=== PATIENT | female | born 1960 | race Caucasian/White ===

== ENCOUNTER → 2020-09-11 09:29 | Outpatient (CLI) | payer OTHER, SELFPAY ==
--- NOTE | 2020-09-11 | DI.MRI.S_ITS ---
PROCEDURE: MR KNEE LT WO CON INDICATIONS: Unspecified superficial injury of left knee TECHNIQUE: Noncontrast sagittal PD fast spin echo and T2 fast spin echo with fat saturation, sagittal 3-D FLASH with fat saturation; coronal T1 spin echo and PD fast spin echo with fat saturation, and axial PD fast spin echo with fat saturation through the knee. COMPARISON: None. FINDINGS: Image quality: Excellent. Menisci: Linear oblique high T2 signal intensity traverses the posterior horn medial meniscus, demonstrating inferior articular surface extension. There is linear and amorphous high signal intensity within the lateral meniscal body and posterior horn, demonstrating superior and inferior articular surface extension, indicating complex tearing. Cruciate ligaments: The anterior and posterior cruciate ligaments appear intact. Medial structures: The medial collateral ligament appears intact. Visualized portions of the pes anserinus tendons appear normal. No abnormal bursal fluid. Lateral structures: The lateral collateral ligament demonstrates moderate T2 signal elevation at the femoral origin. The long and short heads of the biceps femoris tendon appear intact. The popliteus tendon appears normal. Iliotibial band appears normal. Anterior structures: The quadriceps and patellar tendons appear intact. Patellar alignment is normal. No femoral trochlear dysplasia or ventral trochlear prominence. Moderate edema in the superolateral aspect of the infrapatellar fat pad. Bones and cartilage: No bone marrow contusions or fractures. Mild articular cartilage loss diffusely overlies the weight-bearing aspects of the lateral femoral condyle and lateral tibial plateau with superimposed high-grade articular cartilage loss overlying the posterior weight-bearing aspect of the lateral femoral condyle. Severe articular cartilage loss diffusely overlies the weight-bearing aspects of the medial femoral condyle and medial tibial plateau. There is a focal moderate to high-grade region of articular cartilage loss overlying the patellar apex measuring 10 mm diameter. Joint space: There is a moderate knee joint effusion. No Coles's cyst. Normal appearing synovial plicae are incidentally noted. IMPRESSION: 1. Tricompartmental osteoarthritis with associated articular cartilage loss. 2. Medial and lateral meniscal tearing. 3. Knee joint effusion. 4. Partial thickness lateral collateral ligament tear. Dictated by: Merry Romo M.D. on 09/11/2020 at 10:45 Approved by: Merry Romo M.D. on 09/11/2020 at 10:47
== END ==
PROVIDERS: PCP Family Medicine; Referring Provider Family Medicine; Visit Provider Family Medicine
DX: S80.912A Unspecified superficial injury of left knee, initial encounter (principal); M17.12 Unilateral primary osteoarthritis, left knee; S83.242A Other tear of medial meniscus, current injury, left knee, initial encounter; S83.272A Complex tear of lateral meniscus, current injury, left knee, initial encounter; M25.462 Effusion, left knee; S83.422A Sprain of lateral collateral ligament of left knee, initial encounter
CPT/HCPCS: 73721

== ENCOUNTER → 2021-01-14 16:14 | Outpatient (CLI) | payer OTHER, SELFPAY | PROVIDERS: PCP Family Medicine; Referring Provider Family Medicine; Visit Provider Family Medicine | DX: Z12.31 Encounter for screening mammogram for malignant neoplasm of breast (principal); Z53.20 Procedure and treatment not carried out because of patient's decision for unspecified reasons ==

== ENCOUNTER → 2021-03-12 16:31 | Outpatient (CLI) | payer OTHER, SELFPAY ==
--- NOTE | 2021-03-12 | DI.MG.S_ITS ---
BILATERAL DIGITAL SCREENING MAMMOGRAM 3D/2D WITH CAD: 03/12/2021 CLINICAL: Routine screening. Comparison is made to exams dated: 02/18/2020 mammogram - [facility], 05/02/2018 mammogram, and 04/12/2017 mammogram - [facility]. There are scattered fibroglandular elements in both breasts. Current study was also evaluated with a Computer Aided Detection (CAD) system. No significant masses, calcifications, or other findings are seen in either breast. There has been no significant interval change. IMPRESSION: NEGATIVE There is no mammographic evidence of malignancy. A 1 year screening mammogram is recommended. This exam was interpreted at Station ID: [id number]. NOTE: For mammograms, a report in lay terms will be sent to the patient. Approximately 15% of breast malignancies will not be visualized mammographically. In the management of a palpable breast mass, a negative mammogram must not discourage biopsy of a clinically suspicious lesion. Electronically Signed By: Eder Flannery M.D., jr/jone:03/15/2021 08:34:54 letter sent: Normal Exam ACR BI-RADS Category 1: Negative 3341F
== END ==
PROVIDERS: PCP Family Medicine; Referring Provider Family Medicine; Visit Provider Family Medicine
DX: Z12.31 Encounter for screening mammogram for malignant neoplasm of breast (principal)
CPT/HCPCS: 77063; 77067

== ENCOUNTER → 2021-04-05 17:20 | Outpatient (CLI) | payer OTHER, SELFPAY ==
--- NOTE | 2021-04-05 | DI.MRI.S_ITS ---
PROCEDURE: MR KNEE RT WO CON INDICATIONS: PAIN IN KNEE,EFFUSION OF RIGHT KNEE TECHNIQUE: Noncontrast sagittal PD fast spin echo and T2 fast spin echo with fat saturation, sagittal 3-D FLASH with fat saturation; coronal T1 spin echo and PD fast spin echo with fat saturation, and axial PD fast spin echo with fat saturation through the knee. COMPARISON: [facility], MR, MR KNEE LT WO CON, 09/11/2020, 10:07. FINDINGS: Image quality: Excellent. Menisci: Medial meniscus is intact. Subtle signal abnormality within posterior horn of lateral meniscus extending to inferior articulating surface is seen concerning for subtle oblique tear. The meniscal root ligaments appear intact. Cruciate ligaments: Myxoid degenerative changes and low to moderate grade intrasubstance partial-thickness tear involving anterior cruciate ligament is noted. No full-thickness ACL rupture. PCL is intact.. Medial structures: The medial collateral ligament appears intact. The posterior oblique ligament, semimembranosus tendon insertions, oblique popliteal ligament, and meniscocapsular junction appear intact. Visualized portions of the pes anserinus tendons appear normal. No abnormal bursal fluid. Lateral structures: The lateral collateral ligament, long and short heads of the biceps femoris tendon appear intact. The popliteus tendon appears normal; the popliteofibular ligament appears intact. The posterosuperior and anteroinferior popliteomeniscal fascicles appear intact. The arcuate and fabellofibular ligaments appear intact, on either side of the lateral inferior geniculate artery. Iliotibial band appears normal. Anterior structures: The quadriceps and patellar tendons appear intact. Patellar alignment is normal. No femoral trochlear dysplasia or ventral trochlear prominence. No edema in the infrapatellar fat pad. Bones and cartilage: No bone marrow contusions or fractures. [id number] tricompartmental osteoarthritis and chondromalacia is seen more prominent in lateral femoral tibial compartment and lateral facet of patella cartilage near apex. Joint space: There is small amount of joint fluid. Tiny popliteal cyst is seen. Normal appearing synovial plicae are incidentally noted. IMPRESSION: 1. Finding is concerning for subtle oblique tear involving posterior horn of lateral meniscus extending to inferior articulating surface. Medial meniscus is intact. 2. Degenerative changes and low to moderate grade intrasubstance partial-thickness tear involving anterior cruciate ligament. No full-thickness ACL rupture. PCL is intact. 3. Cdvz-[id number]-[id number] tricompartmental osteoarthritis and chondromalacia. No fracture or dislocation. 4. Small amount of joint fluid, a tiny popliteal cyst. No gross loose bodies. Dictated by: Juan Penn M.D. on 04/06/2021 at 8:51 Approved by: Juan Penn M.D. on 04/06/2021 at 9:06
== END ==
PROVIDERS: PCP Family Medicine; Referring Provider Family Medicine; Visit Provider Family Medicine
DX: S83.281A Other tear of lateral meniscus, current injury, right knee, initial encounter (principal); S83.511A Sprain of anterior cruciate ligament of right knee, initial encounter; M17.11 Unilateral primary osteoarthritis, right knee; M94.261 Chondromalacia, right knee; M25.561 Pain in right knee; M25.461 Effusion, right knee
CPT/HCPCS: 73721

== ENCOUNTER 2021-04-27 12:12 | Day surgery (SDC) | payer OTHER, SELFPAY ==
[2021-04-27] VITALS (8 sets, daily range): BP systolic 94–151; BP diastolic 55–99; PULSE 93–106; RESP 15–22; TEMP 36.2–37.3; O2SAT 95–98; BMI 33.3
[2021-04-27 12:58] LABS: COVID19 -Nasal RAPID Negative (Negative)
[2021-04-27] MEDS: LACTATED RINGERS 1,000 ML 42 ML IV (13:16)
[2021-04-27] MEDS: CLINDAMYCIN 900 MG/50 ML PIGGYBACK 50 MG IV (15:05)
--- NOTE | 2021-04-27 15:27 | SUR.OPER ---
Lithotomy on padded OR bed, head on pillow, arms secured on padded arm boards at <90 degrees abduction. right leg secured in padded yellow fins stirrups, right leg secured in padded arthroscopy knee calvillo
[2021-04-27] MEDS: BUPIVACAINE 0.5% (PF) 30 ML, EPINEPHrine 0.15 MG INJ (15:38)
--- NOTE | 2021-04-27 16:00 | P.OP_ITS ---
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 She has recurrent effusions. Her scan showed evidence of a meniscal tear and she is brought the operating room for left knee arthroscopy with repair is indicated. Surgeon: Mickie Post Wireless Technician: Rosalinda Lugo Anesthesia Type: Spinal Operative Notes Findings: Complex tear of the posterior horn of the medial meniscus with an unstable flap, areas of grade 2-3 chondromalacia in the medial femoral condyle and tibial plateau, normal ACL, degenerative tear in the lateral meniscus which extended from the anterior 3rd and posterior horn, fairly normal arch to killer cartilage on the lateral femoral condyle some grade 2 chondromalacia along the lateral tibial plateau, grade 2-3 chondromalacia trochlear groove and patella Closure Type: primary Specimen(s): none sent Estimated Blood Loss (mL): 10 Blood products transfused: none Procedure in detail: Patient brought the operating room she underwent induction of spinal anesthetic. Her left lower extremity prepped draped standard sterile fashion. IV antibiotics were given. A time-out was performed. She was prepped and draped sterilely. A left knee arthroscopy was performed 3 portal arthroscopy with a lateral parapatellar portal and medial and lateral inferior parapatellar portals . She had a tear both in the lateral meniscus and in the medial meniscus. Mechanical shaver was used to resect the meniscus back to stable meniscal rim. Both menisci were carefully checked probed. There was no residual unstable fragment. The knee was meticulously irrigated with normal saline. There was evidence of chondromalacia both in the medial and lateral compartment but there was no large unstable than chondromalacia flaps. Knee was meticulously irrigated with normal saline. The portals were closed with interrupted nylon. Steri-Strips were applied. Patient tolerated the procedure well she was transferred to recovery room in satisfactory condition. Wound was dressed sterilely. Complications: none Post-operative Condition: stable Disposition: Acute Care Plan for aftercare: Weight-bearing as tolerated on the left lower extremity. Ice as needed. Okay to begin immediate range of motion and strengthening. Her suture removal at 10- 14 days postoperatively.
== END 2021-04-27 17:30 | disposition home or self-care (01) ==
PROVIDERS: PCP Family Medicine; Referring Provider Orthopaedic Surgery; Visit Provider Orthopaedic Surgery
PROC: (CPT 29870; principal; 2021-04-27 14:00)
DX: S83.222A Peripheral tear of medial meniscus, current injury, left knee, initial encounter (principal); Z20.822 Contact with and (suspected) exposure to COVID-19
CPT/HCPCS: 29881; 87635; C9803; J0171; J1100; J1885; J2250; J2405; J2704; J3010

== ENCOUNTER → 2021-08-24 07:07 | Outpatient (CLI) | payer OTHER, SELFPAY ==
[2021-08-24 11:53] LABS: COVID19 -Nasal RAPID Negative (Negative)
== END ==
PROVIDERS: PCP Family Medicine; Visit Provider Surgery
DX: Z01.812 Encounter for preprocedural laboratory examination (principal); Z20.822 Contact with and (suspected) exposure to COVID-19
CPT/HCPCS: 87635; C9803

== ENCOUNTER 2021-08-25 07:27 | Day surgery (SDC) | payer OTHER, SELFPAY ==
[2021-08-20 08:41] VITALS: BMI 33.3
[2021-08-25 07:53] VITALS: BMI 33.3
[2021-08-25 08:11] VITALS: BP 161/89; PULSE 78; RESP 18; TEMP 35.9; O2SAT 98
[2021-08-25] MEDS: LACTATED RINGERS 1,000 ML 100 ML IV (08:18)
--- NOTE | 2021-08-25 08:32 | P.HP_ITS ---
History of Present Illness History of Present Illness Date Patient Seen: 08/25/21 Time Patient Seen: 08:32 Chief complaint: SDC Narrative: 60-year-old woman with a symptomatic umbilical hernia here for elective repair. Please refer to the H& P from May 2021 for further detail. During the interval she developed mild COVID which has resolved. Today she is feeling well without complaint. Patient History Medical History Anesthesia complication GERD (gastroesophageal reflux disease) Heart murmur Hiatal hernia HTN (hypertension) Insomnia Gee neuroma RLS (restless legs syndrome) SVT (supraventricular tachycardia) (~2017) Uterine polyp Surgical History History of foot surgery History of gynecologic surgery History of laparoscopy Hx of arthroscopy of left knee (05/2021) Hx of tonsillectomy Status post bunionectomy Family & Social History Social History: household members spouse Tobacco & Substance use: Tobacco type cigarettes Smoking Status Current every day smoker Smoking packs per day 1 alcohol intake current alcohol intake frequency 0-2 drinks per day Substance Use Type does not use Meds Home Medications and Allergies Home Medications Medication Instructions Recorded Confirmed Type amitriptyline 50 mg tablet 50 mg PO DAILY ##0 04/27/21 08/25/21 History aspirin 81 mg capsule 81 mg PO DAILY ##0 04/27/21 08/25/21 History cetirizine 10 mg tablet 10 mg PO DAILY ##0 04/27/21 08/25/21 History conj estrogen-medroxyprogesterone 1 tab PO DAILY ##0 04/27/21 08/25/21 History 0.625 mg-5 mg tablet (Prempro) omeprazole 20 mg tablet,delayed 20 mg PO BID ##0 04/27/21 08/25/21 History release pramipexole 0.25 mg tablet 0.25 mg PO DAILY ##0 04/27/21 08/25/21 History tizanidine 2 mg tablet 2 mg PO DAILY ##0 04/27/21 08/25/21 History zolpidem 5 mg tablet 5 mg PO BEDTIME ##0 04/27/21 08/25/21 History magnesium 250 mg tablet 500 mg PO DAILY 05/24/21 08/25/21 History zinc gluconate 50 mg tablet 50 mg PO DAILY 05/24/21 08/25/21 History carvedilol 25 mg tablet 25 mg PO BID 08/20/21 08/25/21 History Allergies Allergy/AdvReac Type Severity Reaction Status Date / Time oxycodone Allergy Severe Nausea Verified 08/25/21 07:45 cefazolin Allergy Hives Verified 08/25/21 07:45 celecoxib [From Celebrex] Allergy Gastrointestinal Verified 08/25/21 07:45 Upset latex Allergy Anaphylaxis Verified 08/25/21 07:45 scopolamine Allergy Blister Verified 08/25/21 07:45 varenicline [From Chantix] Allergy Anaphylaxis Verified 08/25/21 07:45 bupropion [From Wellbutrin] AdvReac GLOBAL SAFETY OFFICER Verified 08/25/21 07:45 disturbance Exam Vital Signs (past 8 hours): - 08/25/21 08:11 Temperature 96.7 F L Pulse Rate 78 Respiratory Rate 18 Blood Pressure 161/89 H Pulse Oximetry 98 Oxygen Delivery Method Room Air Oxygen Delivery Method Room Air Narrative Exam Narrative: General adult woman alert oriented no acute distress Abdomen soft nontender nondistended umbilical hernia soft reducible Assessment & Plan Assessment and plan (1) Umbilical hernia: Qualifiers: Obstruction and gangrene presence: without obstruction or gangrene Qualified Code(s): K42.9 - Umbilical hernia without obstruction or gangrene Status: Acute Assessment & Plan narrative: 60-year-old woman with a symptomatic umbilical hernia here for elective open umbilical hernia repair likely with mesh. Overview of the operation was again discussed with the patient at the bedside. Operative risks including bleeding, infection, recurrence, damage to surrounding structures were discussed. Her questions have been answered and she is in agreement with this plan. Time Spent With Patient Critical Care time: I spent a total of [] minutes of critical care time on this patient's care today; this time is exclusive of procedural time.
[2021-08-25] MEDS: APREPITANT 40 MG CAPSULE PO (08:45)
[2021-08-25] MEDS: CLINDAMYCIN 900 MG/50 ML PIGGYBACK 50 MG IV (09:06)
--- NOTE | 2021-08-25 09:14 | SUR.OPER ---
Supine on padded OR bed, head on pillow, arms secured on padded arm boards at <90 degrees abduction, legs uncrossed, safety belt at thigh, tape over blanket over lower legs. Gel pad under bilateral heels.
[2021-08-25] MEDS: BUPIVACAINE 0.5% (PF) VIAL 60 ML INJ (09:18)
[2021-08-25 09:43] VITALS: BP 114/71; PULSE 77; RESP 16; TEMP 36.1; O2SAT 99
[2021-08-25 09:47] VITALS: BP 117/76; PULSE 77; RESP 12; O2SAT 99
[2021-08-25 09:52] VITALS: BP 110/71; PULSE 76; RESP 12; O2SAT 97
--- NOTE | 2021-08-25 09:53 | PM.OP.1 ---
Operative Date/Time/Diagnoses Date of procedure: 08/25/21 Time of procedure: 09:53 Pre-op diagnosis: Umbilical hernia Post-op diagnosis: same Procedure & Clinicians Procedure: Open umbilical hernia repair Same procedure as scheduled: Yes Indications: Symptomatic reducible umbilical hernia Surgeon: Nicanor Bridges Operative Notes Findings: 1 cm fascial defect containing omentum. Estimated Blood Loss (mL): 10 Procedure in detail: Patient was brought to the operating room placed supine on the table. Bilateral lower extremity compression devices were applied. General anesthesia was induced. They received 900 mg Clindamycin prior to skin incision. They were prepped and draped in sterile fashion. A time-out was performed. A curvilinear incision was made inferior to the umbilicus. The subcutaneous tissues were divided. The umbilical hernia was identified and the hernia sac was dissected off the umbilical skin and circumferentially off of the fascia defect. The hernia sac was sharply opened and contained viable omentum. The omentum was reduced back into the abdomen. Using blunt dissection I carefully carefully freed the hernia sac from beneath the fascia defect. The fascia defect was 1 cm in maximal diameter. Given the small size of the fascial defect it was closed primarily with interupted Ethibond suture. The umbilical skin was tacked to the subcutaneous tissues and then the remainder of the subcutaneous tissues were reapproximated using 3 0 Vicry,l skin closed with 4 0 Monocryl followed by the application of Dermabond and Steri-Strips. Sponge instrument count at the end of the operation was correct. Patient tolerated procedure well was extubated and transferred to postoperative care unit in stable condition. Complications: none Post-operative Condition: stable Disposition: same day surgery
[2021-08-25 09:57] VITALS: BP 118/74; PULSE 75; RESP 16; TEMP 36.4; O2SAT 97
[2021-08-25] MEDS: ACETAMINOPHEN IV 1,000 MG/100 ML VIAL 400 MG IV (09:59)
[2021-08-25 10:11] VITALS: BP 123/76; PULSE 77; RESP 16; TEMP 36.2; O2SAT 99
== END 2021-08-25 10:25 | disposition home or self-care (01) ==
PROVIDERS: PCP Family Medicine; Referring Provider Surgery; Visit Provider Surgery
PROC: (CPT 49585; principal; 2021-08-25 08:45)
DX: K42.9 Umbilical hernia without obstruction or gangrene (principal); I10 Essential (primary) hypertension; K21.9 Gastro-esophageal reflux disease without esophagitis; I47.1 Supraventricular tachycardia; G25.81 Restless legs syndrome; G47.00 Insomnia, unspecified
CPT/HCPCS: 49585; J0131; J1100; J2250; J2405; J2704; J8501

== ENCOUNTER → 2022-03-18 07:17 | Outpatient (CLI) | payer OTHER, SELFPAY ==
--- NOTE | 2022-03-18 07:18 | DI.MG.S_ITS ---
BILATERAL DIGITAL SCREENING MAMMOGRAM 3D/2D WITH CAD: 03/18/2022 CLINICAL: Routine screening. Comparison is made to exams dated: 03/12/2021 mammogram - [facility], 02/18/2020 mammogram - [facility], and 05/02/2018 mammogram - [facility]. There are scattered areas of fibroglandular density in both breasts (category b / 25%-50% glandular tissue). Current study was also evaluated with a Computer Aided Detection (CAD) system. No significant masses, calcifications, or other findings are seen in either breast. There has been no significant interval change. IMPRESSION: NEGATIVE There is no mammographic evidence of malignancy. A 1 year screening mammogram is recommended. Based on the Tyrer Cuzick model (a risk assessment model) the patient's lifetime risk is 8.9% and her 10 year risk is 3.6%. According to the ACR, ACS, and NCCN guidelines, an annual breast MRI exam along with mammogram is recommended if the patient's lifetime risk is 20% or greater. This exam was interpreted at Station ID: [id number]. NOTE: For mammograms, a report in lay terms will be sent to the patient. Approximately 15% of breast malignancies will not be visualized mammographically. In the management of a palpable breast mass, a negative mammogram must not discourage biopsy of a clinically suspicious lesion. Electronically Signed By: Eder Flannery M.D., jr/jone:03/18/2022 13:56:53 letter sent: Normal Exam ACR BI-RADS Category 1: Negative 3341F
== END ==
PROVIDERS: PCP Family Medicine; Referring Provider Family Medicine; Visit Provider Family Medicine
DX: Z12.31 Encounter for screening mammogram for malignant neoplasm of breast (principal)
CPT/HCPCS: 77063; 77067

== ENCOUNTER → 2022-08-04 11:37 | Outpatient (CLI) | payer OTHER, SELFPAY ==
[2022-08-04 12:25] LABS: Add Manual Diff / Slide Review NO; Appearance Urine UA CLEAR; Basophils Absolute Auto 100 /uL (0-100); Basophils Percent Auto 1.3 % (0-2); Bilirubin Urine UA NEGATIVE (NEGATIVE); Color Urine UA YELLOW; Eosinophils Absolute Auto 100 /uL (0-450); Eosinophils Percent Auto 1.7 % (2-4); Glucose Urine UA NEGATIVE (Negative); Hematocrit 39.9 % (36-46); Hemoglobin 13.5 g/dL (12.0-16.0); Ketones Urine UA NEGATIVE (NEGATIVE); Leukocyte Esterase Urine UA NEGATIVE (NEGATIVE); Lymphocytes Absolute Auto 3800 /uL (1100-4500); Lymphocytes Percent Auto 43.6 % (25-40); Mean Corpuscular HGB Conc 33.8 % (30-36); Mean Corpuscular Hemoglobin 30.5 PG (26-34); Mean Corpuscular Volume 90.3 fL (80-100); Monocytes Absolute Auto 600 /uL (0-900); Monocytes Percent Auto 6.7 % (3-14); Neutrophils Absolute Auto 4100 /uL (1500-7000); Neutrophils Percent Auto 46.7 % (50-75); Nitrite Urine UA NEGATIVE (Negative); Occult Blood Urine UA NEGATIVE (Negative); Platelet Count 282 X10^3/uL (150-400); Protein Urine UA NEGATIVE (Negative); Red Blood Cell Count 4.42 X10^6/uL (4.0-5.2); Red Cell Distribution Width 14.6 % (11.6-14.8); Specific Gravity Urine UA <=1.005 (1.000-1.035); Urobilinogen Urine UA 0.2 E.U./dL (0.2); White Blood Cell Count 8.7 X10^3/uL (4.5-11.0)
[2022-08-04 12:38] LABS: pH Urine UA 6.5 (4.5-8.0)
[2022-08-04 12:40] LABS: Bacteria Urine Occasional (0-1); Culture Indicated Urine Cult Not Indicated; RBC Urine 0-1/HPF (0-5/HPF); Squamous Epithelial Cell Urine 0-1 /HPF (0-5/HPF); WBC Urine 0-1/HPF (0-5/HPF)
[2022-08-04 13:35] LABS: BUN Creatinine Ratio 26.4 (6-22); Blood Urea Nitrogen 19 mg/dL (7-17); Calcium 9.4 mg/dL (8.4-10.2); Carbon Dioxide 27 mmol/L (22-32); Chloride 102 mmol/L (98-107); Estimated Glomerular Filt Rate > 60 mL/min (>60); Glucose 174 mg/dL (80-110); HEMOLYSIS < 15 (0-50); Potassium 4.3 mmol/L (3.4-5.1); Sodium 136 mmol/L (137-145)
[2022-08-05 05:54] LABS: x Labcorp Estim. Avg Glu (eAG) 134 mg/dL (.); x Labcorp Hemoglobin A1c 6.3 % (4.8-5.6)
== END ==
PROVIDERS: PCP Family Medicine; Referring Provider Orthopaedic Surgery; Visit Provider Orthopaedic Surgery
DX: Z01.818 Encounter for other preprocedural examination (principal); Z01.812 Encounter for preprocedural laboratory examination; R73.9 Hyperglycemia, unspecified; N39.0 Urinary tract infection, site not specified
CPT/HCPCS: 36415; 80048; 81001; 83036; 85025; 93005; 93010

== ENCOUNTER 2022-11-08 06:03 | Day surgery (SDC) | payer OTHER, SELFPAY ==
[2022-11-01 09:50] VITALS: BMI 33.3
[2022-11-08] VITALS (8 sets, daily range): BP systolic 102–142; BP diastolic 54–87; PULSE 74–117; RESP 14–97; TEMP 36.2–36.6; O2SAT 17–99; BMI 33.3
[2022-11-08] MEDS: LACTATED RINGERS 1,000 ML 42 ML IV ×2 (07:13→09:47)
[2022-11-08] MEDS: VANCOMYCIN 1,000 MG/200 ML PIGGYBACK 200 MG IV (07:13)
[2022-11-08] MEDS: ACETAMINOPHEN 325 MG TABLET 975 MG PO (07:13)
[2022-11-08] MEDS: ALBUTEROL/IPRATROPIUM 3 ML AMPUL INH ×2 (07:39→10:26)
--- NOTE | 2022-11-08 07:50 | PM.PREOP ---
Pre-operative Note Interval Note History & Physical reviewed/Exam performed by Physician: Yes Changes to H&P: No
--- NOTE | 2022-11-08 07:50 | PM.PREOP ---
Pre-operative Note Interval Note History & Physical reviewed/Exam performed by Physician: Yes Changes to H&P: No
--- NOTE | 2022-11-08 07:51 | PM.OP.1 ---
Operative Date/Time/Diagnoses Date of procedure: 11/08/22 Time of procedure: 08:00 Pre-op diagnosis: left knee OA Post-op diagnosis: same Procedure & Clinicians Procedure: Left total knee arthroplasty Same procedure as scheduled: Yes Indications: The patient has had progressively worsening left knee pain with radiographic changes consistent with arthritis. Non-operative management has failed and the patient has requested total knee replacement. The risks, benefits and alternatives to surgery were discussed with the patient prior to proceeding. Risks discussed included, but were not limited to, failure to relieve pain, stiffness, infection, nerve damage, deep venous thrombosis, pulmonary embolism, stroke, coma, heart attack, permanent paralysis and , as well as the potential need for eventual revision of the prosthetic. Surgeon: Mickie Post Lead Network Engineer: Jose Mcclendon Anesthesia Type: General and Spinal Operative Notes Findings: Severe left knee OA Closure Type: primary Specimen(s): none sent Prosthetic devices, grafts, tissues, transplants, or devices: Post and nephew antwonney BCS 2 size 5 femur, size 4 tibia, +10 poly, 35 x 7-1/2 mm patella Estimated Blood Loss (mL): 250 Blood products transfused: none Tourniquet time (min): 68 Procedure in detail: The patient was seen in the pre-operative area, where the patient identified the left knee as the operative site and this was marked with my initials. The patient received pre-operative antibiotics, and was taken to the operating room and placed on the operative table in the supine position. After satisfactory anesthesia, a realtime court reporter out was performed. The left leg was encircled with a tourniquet about the proximal thigh, and the leg was prepared from the toes to the tourniquet with ChloroPrep in the usual fashion and draped through sterile drapes. The leg was elevated and exsanguinated with Eschmark bandage and the tourniquet inflated to [250] mmHg pressure. A PA was used during the procedure for intraoperative retraction and safe implantation of the components. They were essential for helping adequately perform the procedure. The knee was approached through an approximately 18 cm incision centered over the patella and carried into the knee through a medial parapatellar arthrotomy. A portion of the medial and lateral meniscus was resected. Soft tissue was carefully mobilized around the patella the patella was measured with a caliper. Bone was resected from the patella and the patellar height was reconstituted with up an appropriate sized patellar component. A cover was then placed on the patella. A small amount of additional medial and lateral meniscus was resected. The distal femur was cut at 5?. A [+2] cut was used. It looked like an appropriate distal femoral cut and the cut was made without difficulty. An extramedullary guide was used for the tibial cut. 10 mm was resected off the least affected side.The tibia was prepared. The rotation was assessed. The patient was placed in extension residual medial and lateral meniscus as well as any residual bone was carefully resected. [No] additional tibia was resected. Hemostasis was achieved especially posteriorly. Additional local was injected into the posterior capsule. The extension gap was assessed and additional releases for gap balancing were performed as necessary. It was checked with the gap carburetor mechanic. The femoral component was trial was placed and the notch was finished. The rotation was assessed and the appropriate size femoral guide was placed on the distal femur and finishing cuts were made. There was no evidence of notching. The anterior, posterior and chamfer cuts were then made. The posterior osteophytes and soft tissues were then removed. The posterior capsule was injected with part of a mixture of 60 ml 0.25% Marcaine mixed with 20 ml Exparel for post operative pain control. The remainder of this mixture was injected into the capsule and subcutaneous tissues during cement curing. The tibial and femoral components were then placed and the knee placed through a range of motion. Range of motion was [0-130], with good stability throughout the range. The trials were then removed, and the tibia was finished. The bone was prepared with pulsatile lavage, and dried with a sponge. Cement was applied and the final prosthetics placed. Excess cement was removed during and after cement curing. A brief Betadine soak was performed. After confirming there was no extruded cement posteriorly, the final tibial insert was placed. The knee was copiously irrigated and the tourniquet deflated. Hemostasis was obtained with the Bovie cautery. The capsule was closed with interrupted nonabsorbable suture. The subcutaneous layer was closed with barbed sutures, and the skin with a running 3-0 V-Lock suture and Surgical glue. An Aquacel Ag dressing was applied and the patient was taken to recovery having tolerated the procedure well. Complications: none Post-operative Condition: stable Disposition: Acute Care Plan for aftercare: The patient will be maintained on a standard total knee replacement protocol with weight bearing as tolerated. The patient will receive Xarelto and sequential compression devices for DVT prophylaxis. The patient will be discharged home when safe for the home environment.
--- NOTE | 2022-11-08 08:00 | DI.RAD.S_ITS ---
PROCEDURE: XR KNEE LT 1TO2V INDICATIONS: Left TKA TECHNIQUE: 2 view(s) of the knee acquired. COMPARISON: None. FINDINGS: Bones: Patient is status post knee joint arthroplasty. Hardware components are in expected positions. Visualized bony structures are intact. Soft tissues: Overlying postoperative changes are noted. IMPRESSION: Expected appearance of the left total knee arthroplasty. Dictated by: Desean Dang M.D. on 11/08/2022 at 12:36 Approved by: Desean Dang M.D. on 11/08/2022 at 12:37
--- NOTE | 2022-11-08 08:36 | SUR.OPER ---
Supine on padded OR bed. Pillow under head, arms secured on padded armboards <90 degree abduction. Safety belt across torso. Non-operative leg secured with tape over blanket over lower leg. Operative leg secured in DeMayo positioner. Foam padded brace at thigh of operative leg.
[2022-11-08] MEDS: BUPIVACAINE 0.25% (PF) 60 ML, EPINEPHrine 0.3 MG INJ (08:39)
[2022-11-08] MEDS: BUPIVACAINE LIPOSOME 266 MG/20 ML VIAL INJ (08:40)
[2022-11-08] MEDS: HYDROMORPHONE 1 MG INJ IV (10:25)
[2022-11-08] MEDS: hydrOXYzine 50 MG/ML INJ 25 MG IM (10:31)
[2022-11-08] MEDS: HYDROCODONE/ACET 5/325 TABLET 1 TAB PO ×2 (10:48→11:04)
[2022-11-08] MEDS: HYDROMORPHONE 2 MG TABLET PO (12:54)
[2022-11-08] MEDS: LACTATED RINGERS 1,000 ML 100 ML IV (12:59)
[2022-11-08] MEDS: ACETAMINOPHEN 325 MG TABLET 650 MG PO (13:01)
[2022-11-08] MEDS: IBUPROFEN 400 MG TABLET PO (13:01)
--- NOTE | 2022-11-08 13:40 | PT.IIE ---
Current Diagnoses Unilateral primary osteoarthritis, left knee (11/08/22) Surgery Performed Operation Date: 11/08/22 07:45 Actual Procedures p Total Knee Arthroplasty(Left) - Mickie Post MD Surgical History (Last Reviewed 08/25/21 @ 08:33 by Nicanor Bridges MD) History of foot surgery History of gynecologic surgery History of laparoscopy Hx of arthroscopy of left knee (05/2021) Hx of tonsillectomy Status post bunionectomy Medical History (Last Updated 11/01/22 @ 10:13 by Jeff Posey RN) Anesthesia complication Chronic cough GERD (gastroesophageal reflux disease) Heart murmur Hiatal hernia HTN (hypertension) Insomnia Gee neuroma RLS (restless legs syndrome) SVT (supraventricular tachycardia) (~2016) Uterine polyp Physical Therapy Inpatient Evaluation/Re-Eval M1 PT/OT-IP Prior Functional Status Start: 11/08/22 13:21 Freq: NEEDED Status: Active Protocol: Document 11/08/22 11:39 MB (Rec: 11/08/22 13:40 MB [id number]) Medical Review Prior Functional Status Medical History Reviewed Yes Diet/Fluid Consistency Regular Communication WNLs Mobility and Gait I Activities of Daily Living and IADL's I Prior Functional Level (Other details) I. 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 She lives with her who will be able to assist her at d/c. Social History Household Members spouse Living Arrangements House Number of Floors (Floors) Two Floors Number of Stairs To Enter/Railing? 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 M2 PT-IP Current Condition Start: 11/08/22 13:21 Freq: NEEDED Status: Active Protocol: Document 11/08/22 11:39 MB (Rec: 11/08/22 13:40 MB [id number]) Physical Therapy Current Condition Current Condition Evaluation Date 11/08/22 Treatment Diagnosis L TKA Onset Date 11/08/22 M3 PT-IP Subjective Start: 11/08/22 13:21 Freq: NEEDED Status: Active Protocol: Document 11/08/22 11:39 MB (Rec: 11/08/22 13:40 MB [id number]) Subjective Physical Therapy Visit Type Type Initial Evaluation Visit Start Time 11:39 Visit Stop Time 12:05 Total Visit Minutes 26 Number of MORTGAGE MANAGER Visits 0 Physical Therapy Visit Comments Patient Comments I have a goal and it is to go home by 3:00 today. Patient Goals See above Therapy Pain Assessment Pain When Pain Assessed At Rest Pain Present Pain Present Denied Pain M4 PT-IP Mobility and Gait Start: 11/08/22 13:21 Freq: NEEDED Status: Active Protocol: Document 11/08/22 11:39 MB (Rec: 11/08/22 13:40 MB [id number]) PT-Bed Mobility Assessment Supine to Sit Supine to Sit Standby Assistance,1 Person Assistance,Head of Bed Elevated,Bedrails Sit to Supine Sit to Supine Standby Assistance,1 Person Assistance,Head of Bed Elevated,Bedrails Scooting Scooting to Edge of Bed Standby Assistance PT-Transfer Assessment Sit to and From Stand Sit to and from Stand Minimal Assistance,1 Person Assistance,Use of Upper Extremities Equipment Transfer Assistive Device Gait Belt,Front Wheeled Walker Orthotic/Prosthetic Devices or Brace: No Transfers Transfer Destination Chair Transfer Technique Stand Step Pivot Transfer Ability Level of Assist Minimal Assistance Comments Mobility Comments Upon standing, pt sways and is imbalanced. She con't post-op B numbess in legs. Gait Assessment Gait Gait Assistance Required: Minimum Assistance,1 Person Assist Distance (Feet) 2 Able to Maintain Weight Bearing Status Yes During Gait Assistive Devices Assistive Device Gait Belt,Front Wheeled Walker Orthotic/Prosthetic Devices or Brace: No Gait Deviations General Gait Pattern Step-to Gait,Wide Based Gait Factors Limiting Gait Function Factors Limiting Gait Function Decreased Sensation,Poor Balance Comments Gait Comments Pt reports B LE numbness d/t getting out of surgery this a. m. and seen for PT before noon . Pt, nsg and PT agree to go ahead and assess pt since she is doing well with pain and range and is A&O. PT limits stepping to a few steps bed to chair and then forward and back stepping with RW and min A: PT teaches step-to gait. PT-Balance Assessment Sitting Balance and Reactions Static Sitting Balance Ability Good Dynamic Sitting Balance Ability Good Standing Balance and Reactions Static Standing Balance Ability Fair Dynamic Standing Balance Ability Fair M5 PT-IP Objective Assessments Start: 11/08/22 13:21 Freq: NEEDED Status: Active Protocol: Document 11/08/22 11:39 MB (Rec: 11/08/22 13:40 MB [id number]) Orientation Orientation/Cognition Level of Alertness Alert Orientation Name,Age,Birthday,Month,Date, Year,Day of Week,Place, Situation Language Function Ability No Deficits Noted Safety Awareness Understands Safety Issues Comments Pt with low BP in RUE sittmg EOB with systolic in the 70s and diastolic in the 40s. Pt states this is normal for her with surgery and she is not symptomatic. BP increases with systolic in the 130s with standing up. Gross Range of Motion Lower Extremity ROM Assessment Left Impaired Impairments Pt likely with hypermobile left knee pre-op because post- op, it is normal. AROM knee flexion to 60 deg. Pt can perform SLR post-op. Strength Lower Extremity Strength Assessment Left Impaired Hip WNLs Knee 4/5 Ankle WNLs Comments Strength Comments Overall, strength was good post-op and sensation was affected by spinal block Sensation Assessment Sensation Gross Sensation Right LE Impaired,Left LE Impaired Comments Sensation Comments See comments above: post-op numbness Muscle Tone Muscle Tone WNL Yes M6 PT-IP Treatment Start: 11/08/22 13:21 Freq: NEEDED Status: Active Protocol: Document 11/08/22 11:39 MB (Rec: 11/08/22 13:40 MB [id number]) Physical Therapy Treatment Exercises Exercises Ankle Pumps,Quad Sets,Heel Slides,Straight Leg Raises Education Education Provided Weight Bearing Status,Safety M7 PT-IP Assessment and Plan Start: 11/08/22 13:21 Freq: NEEDED Status: Active Protocol: Document 11/08/22 11:39 MB (Rec: 11/08/22 13:40 MB [id number]) PT Summary Assessment and Plan Potential Rehabilitation Potential Excellent Status of Condition at Evaluation Stable Summary Impairments Balance,Sensation,Bed Mobility ,Transfers,Gait,Activity Tolerance Progress Towards Goals Progressing Toward Goals Assessment Summary Pt is a delightful 62 y/o female who has good alertness, strength and ROM immediately post-op Left TKA this date. She lacks in left knee flexion (about 60 deg of flexion) and her knee extension is normal. She has fluctuating BP and numbness post-op that she states is improving. Gait is limited on the eval d/t these two factors. She would like to go home today and she will need to demonstrate safe gait and stair training before d/ cing. Unsure if this will be able to be done by pt or not. Goals Bed Mobility Goal Independent Transfer Goal Independent,Front Wheeled Walker Gait Goal Independent,Front Wheel Walker Gait Distance 100 Other Goals Pt will ascend and descend 2 steps with RW and min A to allow home entrance. Pt will ascend and descend 3-4 steps with rail, facing rail, and CGA to allow home mobility. Frequency of Treatment Frequency Of Treatment Twice a Day Treatment Plan Physical Therapy Treatment Plan Bed Mobility Training,Transfer Training,Gait Training, Therapeutic Exercise,Balance Retraining,Post Op Education, Hot or Cold Pack Weight Bearing Status Weight Bearing Status Weight Bear as Tolerated Recommendations To Nursing Amount of Assist Needed 1 Person Assist Discharge Recommendations PT Discharge Recommendations Home with 24/ Assist Available,Outpatient PT Transportation Needs at Discharge Private Vehicle
--- NOTE | 2022-11-08 14:24 | PT.IPTN ---
Current Diagnoses Unilateral primary osteoarthritis, left knee (11/08/22) Surgery Performed Operation Date: 11/08/22 07:45 Actual Procedures p Total Knee Arthroplasty(Left) - Mickie Post MD Physical Therapy Treatment Note M2 PT-IP Current Condition Start: 11/08/22 13:21 Freq: NEEDED Status: Active Protocol: Document 11/08/22 11:39 MB (Rec: 11/08/22 13:40 MB [id number]) Physical Therapy Current Condition Current Condition Evaluation Date 11/08/22 Treatment Diagnosis L TKA Onset Date 11/08/22 M3 PT-IP Subjective Start: 11/08/22 13:21 Freq: NEEDED Status: Active Protocol: Document 11/08/22 14:00 MB (Rec: 11/08/22 14:24 MB [id number]) Subjective Physical Therapy Visit Type Type Treatment Note Visit Start Time 14:00 Visit Stop Time 14:15 Total Visit Minutes 15 Number of SAFE DEPOSIT CLERK Visits 0 Physical Therapy Visit Comments Patient Comments I'm good! Therapy Pain Assessment Pain When Pain Assessed During Mobility Pain Present Pain Present Denied Pain M4 PT-IP Mobility and Gait Start: 11/08/22 13:21 Freq: NEEDED Status: Active Protocol: Document 11/08/22 14:00 MB (Rec: 11/08/22 14:24 MB [id number]) PT-Bed Mobility Assessment Supine to Sit Supine to Sit Independent,Head of Bed Elevated,Bedrails Scooting Scooting to Edge of Bed Independent PT-Transfer Assessment Sit to and From Stand Sit to and from Stand Standby Assistance,1 Person Assistance,Use of Upper Extremities Equipment Transfer Assistive Device Gait Belt,Front Wheeled Walker Orthotic/Prosthetic Devices or Brace: No Gait Assessment Gait Gait Assistance Required: Standby Assistance,1 Person Assist Distance (Feet) 80 Able to Maintain Weight Bearing Status Yes During Gait Assistive Devices Assistive Device Gait Belt,Front Wheeled Walker Orthotic/Prosthetic Devices or Brace: No Gait Deviations General Gait Pattern Decreased Stride Length,Wide Based Gait Comments Gait Comments Pt gait trains 80'x2 with SBA and RW, improved step-through gait and no light-headedness or LOB. PT instructs pt in stair training with RW for ascend and descend the two steps without a rail and to ascend and descend 3 steps with left rail and pt requires cues and min A for without a rail and CGA for with a rail. BP does not drop with PT. Stair Climbing Assessment Evaluation Level of Assist On Stairs Contact Guard Assistance, Minimal Assistance,1 Person Assistance Devices Stair Climbing Assistive Devices Front Wheel Walker,Left Railing Technique/Endurance Stair Climbing Direction Ascend and Descend Stair Climbing Technique Step to Step Number of Steps Climbed 3 Stair Climbing Set # Repetitions (reps) 3 Comments Stair Climbing Comments Two ways practiced so that pt can both get into the house at the two steps that don't have a rail and to mobilize once inside the house with the split steps that have left rail and pt requires min A for the steps without rail, ascending up backwards and then CGA for the steps with a rail with rail on the left and facing it. M5 PT-IP Objective Assessments Start: 11/08/22 13:21 Freq: NEEDED Status: Active Protocol: Document 11/08/22 11:39 MB (Rec: 11/08/22 13:40 MB [id number]) Orientation Orientation/Cognition Level of Alertness Alert Orientation Name,Age,Birthday,Month,Date, Year,Day of Week,Place, Situation Language Function Ability No Deficits Noted Safety Awareness Understands Safety Issues Comments Pt with low BP in RUE sittmg EOB with systolic in the 70s and diastolic in the 40s. Pt states this is normal for her with surgery and she is not symptomatic. BP increases with systolic in the 130s with standing up. Gross Range of Motion Lower Extremity ROM Assessment Left Impaired Impairments Pt likely with hypermobile left knee pre-op because post- op, it is normal. AROM knee flexion to 60 deg. Pt can perform SLR post-op. Strength Lower Extremity Strength Assessment Left Impaired Hip WNLs Knee 4/5 Ankle WNLs Comments Strength Comments Overall, strength was good post-op and sensation was affected by spinal block Sensation Assessment Sensation Gross Sensation Right LE Impaired,Left LE Impaired Comments Sensation Comments See comments above: post-op numbness Muscle Tone Muscle Tone WNL Yes M6 PT-IP Treatment Start: 11/08/22 13:21 Freq: NEEDED Status: Active Protocol: Document 11/08/22 11:39 MB (Rec: 11/08/22 13:40 MB [id number]) Physical Therapy Treatment Exercises Exercises Ankle Pumps,Quad Sets,Heel Slides,Straight Leg Raises Education Education Provided Weight Bearing Status,Safety M7 PT-IP Assessment and Plan Start: 11/08/22 13:21 Freq: NEEDED Status: Active Protocol: Document 11/08/22 14:00 MB (Rec: 11/08/22 14:24 MB [id number]) PT Summary Assessment and Plan Potential Rehabilitation Potential Excellent Status of Condition at Evaluation Stable Summary Impairments Balance,Sensation,Bed Mobility ,Transfers,Gait,Activity Tolerance Progress Towards Goals Progressing Toward Goals Assessment Summary Pt is feeling better two hours later after eval and gait and steps performed and she is SBA to min A and she will have assistance at d/c. Goals Bed Mobility Goal Independent Transfer Goal Independent,Front Wheeled Walker Gait Goal Independent,Front Wheel Walker Gait Distance 100 Other Goals Pt will ascend and descend 2 steps with RW and min A to allow home entrance. Pt will ascend and descend 3-4 steps with rail, facing rail, and CGA to allow home mobility. Frequency of Treatment Frequency Of Treatment Twice a Day Treatment Plan Physical Therapy Treatment Plan Bed Mobility Training,Transfer Training,Gait Training, Therapeutic Exercise,Balance Retraining,Post Op Education, Hot or Cold Pack Weight Bearing Status Weight Bearing Status Weight Bear as Tolerated Recommendations To Nursing Amount of Assist Needed 1 Person Assist Discharge Recommendations PT Discharge Recommendations Home with 29/08 Assist Available,Outpatient PT Transportation Needs at Discharge Private Vehicle
--- NOTE | 2022-11-08 14:30 | OT.IP.EVAL ---
Current Diagnoses Unilateral primary osteoarthritis, left knee (11/08/22) Surgery Performed Operation Date: 11/08/22 07:45 Actual Procedures p Total Knee Arthroplasty(Left) - Mickie Post MD Past Medical History (Last Updated 11/01/22 @ 10:13 by Jeff Posey RN) Anesthesia complication Chronic cough GERD (gastroesophageal reflux disease) Heart murmur Hiatal hernia HTN (hypertension) Insomnia Gee neuroma RLS (restless legs syndrome) SVT (supraventricular tachycardia) (~2017) Uterine polyp Surgical History (Last Reviewed 08/25/21 @ 08:33 by Nicanor Bridges MD) History of foot surgery History of gynecologic surgery History of laparoscopy Hx of arthroscopy of left knee (05/2021) Hx of tonsillectomy Status post bunionectomy Occupational Therapy Inpatient Evaluation/Re-Eval M1 PT/OT-IP Prior Functional Status Start: 11/08/22 14:33 Freq: NEEDED Status: Active Protocol: Document 11/08/22 14:33 [facility] (Rec: 11/08/22 14:41 [facility] [id number]) Medical Review Prior Functional Status Medical History Reviewed Yes Diet/Fluid Consistency Regular Communication WNLs Mobility and Gait I Activities of Daily Living and IADL's I Prior Functional Level (Other details) I. 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 She lives with her who will be able to assist her at d/c. Social History Household Members spouse Living Arrangements House Number of Floors (Floors) Two Floors Number of Stairs To Enter/Railing? 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 M2 OT-IP Current Condition Start: 11/08/22 14:33 Freq: Status: Active Protocol: Document 11/08/22 14:33 [facility] (Rec: 11/08/22 14:41 [facility] [id number]) Occupational Therapy Current Condition Current Condition Evaluation Date 11/08/22 Treatment Diagnosis S/P L TKA Diagnosis Onset Date 11/08/22 M3 OT- IP Subjective and Pain Start: 11/08/22 14:33 Freq: Status: Active Protocol: Document 11/08/22 14:33 [facility] (Rec: 11/08/22 14:41 [facility] [id number]) OT- Subjective Occupational Therapy Visit Type Type Initial Evaluation Visit Start Time 14:12 Visit Stop Time 14:30 Total Visit Minutes 18 Occupational Therapy Visit Comments Patient Comments Pt wanting to get dressed so able to go home. Patient/Caregiver Goals To go home. OT Pain Assessment Pain When Pain Assessed At Rest Pain Present Pain Present Denied Pain M4 OT- IP ADL's Start: 11/08/22 14:33 Freq: Status: Active Protocol: Document 11/08/22 14:33 [facility] (Rec: 11/08/22 14:41 [facility] [id number]) OT JYN-Oaso-Vmispsb General Evaluation Self-Feeding Ability Independent OT ADL-Grooming General Evaluation Grooming Ability Independent OT ADL-Oral Care General Eval Oral Care Ability Independent OT ADL-Dressing General Eval Upper Body Dressing Ability Independent Lower Body Dressing Ability Minimal Assistance Comments OT Dressing Comments Assist to help thread her pants for her LLE. Educated to dress her LLE first and take out last. OT ADL-Toileting General Evaluation Toileting Ability Independent Comments OT Toileting Comments Suggested pt wear a pad at night and taper her water intake at night. OT ADL-Bathing Comments OT Bathing Comments Pt states to shower at home. M5 OT- IP IADL's Start: 11/08/22 14:33 Freq: Status: Active Protocol: Document 11/08/22 14:33 [facility] (Rec: 11/08/22 14:41 [facility] [id number]) OT-Instrumental Activities of Daily Living Deficits IADL Deficits Identified No Deficits Home Safety Awareness Awareness of Need for Assistance at Home Good Awareness Ability to Problem Solve Emergency Able to Problem Solve Situations Medication Management Medication Management No Deficits Identified Money Management Money Management No Deficits Identified Meal Preparation Meal Preparation Comments Pt's to assist. Services Engineer Services Engineer Comments Pt's to assist. M6 OT- IP Functional Cognition Start: 11/08/22 14:33 Freq: Status: Active Protocol: Document 11/08/22 14:33 [facility] (Rec: 11/08/22 14:41 [facility] [id number]) Cognitive Factors Limiting Selfcare Function Cognitive Ability Level of Alertness Alert Patient Orientation Name,Age,Birthday,Month,Date, Year,Day of Week,Place, Situation Attention Span Ability Capable of Focused Attention, Capable of Sustained Attention Ability to Follow Commands Able to Follow Multi-Step Commands Safety Awareness No Deficits Noted Cognitive Comments Cognitive Assessment Comments Intact OT- Vision and Hearing OT- Hearing Assessment OT- Hearing Assessment WFL OT- Vision Assessment Visual Acuity Glasses All The Time Visual Attentiveness WFL Occular Pursuits WFL Visual Convergence WFL M7 OT- IP Mobility and Balance Start: 11/08/22 14:33 Freq: Status: Active Protocol: Document 11/08/22 14:33 [facility] (Rec: 11/08/22 14:41 [facility] [id number]) OT-Transfer Assessment Sit to and From Stand Sit to and from Stand Independent Transfers Transfer Ability Independent Technique Transfer Destination Chair,Toilet Transfer Technique Stand Step Pivot Devices Transfer Assistive Devices Gait Belt,Front Wheeled Walker Comments Mobility Comments Pt independently able to move in the room with the FWW and good safety. OT- Balance Assessment Sitting Balance and Reactions Static Sitting Balance Ability Normal Dynamic Sitting Balance Ability Normal Standing Balance and Reactions Static Standing Balance Ability Normal Dynamic Standing Balance Ability Good M8 OT- IP Objective Assessments Start: 11/08/22 14:33 Freq: Status: Active Protocol: Document 11/08/22 14:33 [facility] (Rec: 11/08/22 14:41 [facility] [id number]) OT Gross Range of Motion Upper Extremity Range of Motion Assessment Within Functional Limits OT Strength Upper Extremity Strength Assessment Within Functional Limits M9 OT- IP Assessment and Plan Start: 11/08/22 14:33 Freq: Status: Active Protocol: Document 11/08/22 14:33 [facility] (Rec: 11/08/22 14:41 [facility] [id number]) OT Summary Assessment and Plan Potential Rehabilitation Potential Excellent Analytic Complexity at Evaluation Low Summary OT Impairments Pain,Balance,Dressing,Bathing Progress Towards Goals Progressing Toward Goals Assessment Summary Pt low complexity and able to do most of her ADL's on her own and just needing assist to help thread her LLE into her pants. Pt looking to go home today and her to assist her. Goals Dressing Goal Independent Bathing Goal Independent Shower Transfer Goal Independent Days to Meet Goals 2 Frequency of Treatment Frequency Of Treatment Once a Day Treatment Plan OT Treatment Plan ADL Training,Functional Mobility,Patient/Family Education,Discharge Planning Discharge Recommendations OT Discharge Recommendations Home with Assistance, Outpatient PT Transportation Needs at Discharge Private Vehicle
[2022-11-08] MEDS: INFLUENZA VACCINE QIV 0.5 ML SYRINGE IM (15:21)
--- NOTE | 2022-11-08 16:37 | PC.NURSE ---
Patient arrived from PACU at approximately 1125 a.m. She is A&OX4, VSS, afebrile on RA. She states numbness initially behind L calf from spinal block. Didier wrap c/d/i. She reports pain well controlled with prn hydromorphone 2 mg, and scheduled tylenol and ibuprofen. She is able to tolerate lunch and participate with PT ambulating twice today.She is cleared on stairs and cleared from PT for safe discharge home with . MD clears patient for discharge home this afternoon. She verbalizes understanding of site care, activity, s/sx of infection as well as follow up appointment in 2 weeks with ortho postoperatively. At 1550 she is escorted via w/ch to private vehicle with for discharge home with all of her belongings including her FWW.
== END 2022-11-08 15:50 | disposition home or self-care (01) ==
LOC: OR 06:05 → AC 06:05
PROVIDERS: PCP Family Medicine; Referring Provider Orthopaedic Surgery; Visit Provider Orthopaedic Surgery
PROC: 0SRD0JZ Replacement of Left Knee Joint with Synthetic Substitute, Open Approach (ICD-10-PCS; CPT 27447; principal; 2022-11-08 07:45)
DX: M17.12 Unilateral primary osteoarthritis, left knee (principal)
CPT/HCPCS: 27447; 73560; 90471; 90656; 97116; 97161; 97165; 97535; C1776; A9270; C9290; J0171; J1100; J1170; J2250; J2405; J2704; J3410; Q2038

== ENCOUNTER → 2023-04-01 09:06 | Outpatient (CLI) | payer OTHER, SELFPAY ==
[2022-11-08 11:36] VITALS: BMI 33.3
--- NOTE | 2023-04-01 09:07 | DI.MG.S_ITS ---
BILATERAL DIGITAL SCREENING MAMMOGRAM 3D/2D WITH CAD: 04/01/2023 CLINICAL: Routine screening. Comparison is made to exams dated: 03/18/2022 mammogram, 03/12/2021 mammogram - [facility], and 02/18/2020 mammogram - [facility]. There are scattered areas of fibroglandular density in both breasts (category b / 25%-50% glandular tissue). Current study was also evaluated with a Computer Aided Detection (CAD) system. No significant masses, calcifications, or other findings are seen in either breast. There has been no significant interval change. IMPRESSION: NEGATIVE There is no mammographic evidence of malignancy. A 1 year screening mammogram is recommended. Based on the Tyrer Cuzick model (a risk assessment model) the patient's lifetime risk is 8.7% and her 10 year risk is 3.6%. According to the ACR, ACS, and NCCN guidelines, an annual breast MRI exam along with mammogram is recommended if the patient's lifetime risk is 20% or greater. This exam was interpreted at Station ID: [id number]. NOTE: For mammograms, a report in lay terms will be sent to the patient. Approximately 15% of breast malignancies will not be visualized mammographically. In the management of a palpable breast mass, a negative mammogram must not discourage biopsy of a clinically suspicious lesion. Electronically Signed By: Aileen Kirk M.D., PH.D graham/jone:04/03/2023 10:52:13 letter sent: Normal Exam ACR BI-RADS Category 1: Negative [id number]
== END ==
LOC: MAMMO 09:07
PROVIDERS: PCP Family Medicine; Referring Provider Family Medicine; Visit Provider Family Medicine
DX: Z12.31 Encounter for screening mammogram for malignant neoplasm of breast (principal); R92.323 Mammographic fibroglandular density, bilateral breasts
CPT/HCPCS: 77063; 77067

== ENCOUNTER → 2024-04-25 11:04 | Outpatient (CLI) | payer OTHER, SELFPAY ==
[2022-11-08 11:36] VITALS: BMI 33.3
--- NOTE | 2024-04-25 11:05 | DI.MG.S_ITS ---
MM screening mammo BI: 04/25/2024. BI-RADS: 1 CLINICAL: 63-year old female for bilateral screening mammogram. Tyrer-Cuzick lifetime risk of 6.3%. No personal or first-degree family history of breast cancer. PRIOR EXAMS 04/01/2023, 03/18/2022, 03/12/2021, 02/18/2020. MAMMOGRAPHY TECHNIQUE: 2D and 3D (tomosynthesis) digital mammographic views obtained, with additional images as needed for full coverage. Current study was also evaluated with a Computer Aided Detection (CAD) system. DENSITY B. There are scattered areas of fibroglandular density. MAMMOGRAPHY FINDINGS Bilateral: No suspicious mass, asymmetry, microcalcification, or other abnormality seen. No significant change from comparison. IMPRESSION: * No evidence of malignancy. RECOMMENDATIONS Bilateral * Annual screening mammography. OVERALL ASSESSMENT CATEGORY BI-RADS-1: Negative. [employer] recommends annual screening mammography beginning at age 40 for women with average risk of breast cancer. ELECTRONICALLY SIGNED: Sandie Wallis M.D. on 04/25/2024 at 04:15:20 PM PT Interpreting Station ID: [id number]
== END ==
PROVIDERS: PCP Family Medicine; Referring Provider Family Medicine; Visit Provider Family Medicine
DX: Z12.31 Encounter for screening mammogram for malignant neoplasm of breast (principal)
CPT/HCPCS: 77063; 77067